=== PATIENT | male | born 1970 | race Caucasian/White ===

== ENCOUNTER 2023-05-05 14:52 | Emergency (ER) | payer BC, OTHER, SELFPAY ==
[2023-05-05 15:05] VITALS: BP 136/95; PULSE 128; RESP 20; TEMP 37.2; O2SAT 98; BMI 25.8
--- NOTE | 2023-05-05 15:13 | US_ITS ---
[address] [address] Patient Name: PIERRE MCKINNEY MRN: [id number] date: 1970 Sex: M Assigned Patient Location: ER Current Patient Location: ER Accession/Order Number: [id number] Exam Date: 05/05/2023 16:40 Report Date: 05/05/2023 18:02 At the request of: KELLY MONAHAN Procedure: US scrotum EXAM: US scrotum HISTORY: torsion COMPARISON: None. TECHNIQUE: Scrotal ultrasound was performed, utilizing grayscale, color, and spectral Doppler. FINDINGS: RIGHT: Testis size: 6 x 2.1 x 3 cm. Testis morphology: Homogeneous appearance. No mass. Testis flow: Normal testicular color and spectral Doppler. Flow is symmetric with the contralateral testis. Epididymis: Normal size and morphology, containing a 0.5 cm cyst. Epididymis flow: Normal epididymal flow. Symmetric flow compared to contralateral epididymis. Scrotal sac: Small hydrocele. Varicocele: Prominent vessels, likely representing varicocele LEFT: Testis size: 5.6 x 3.3 x 3.3 cm. Testis morphology: Heterogenous appearance. No mass. Testis flow: Increased testicular color and spectral Doppler. Asymmetrical increase in flow compared to the contralateral testis. Epididymis: Enlarged and heterogeneous. Epididymis flow: Increased epididymal flow. Symmetric flow compared to contralateral epididymis. Scrotal sac: Large complex hydrocele, containing multiple septations. Varicocele: Prominent vessels, may represent varicocele. Additional findings: None. US/US scrotum IMPRESSION: Heterogenous testicle and epididymis with increased vascular flow, representing acute epididymoorchitis. Small right hydrocele and large left complex hydrocele/pyocele. Posttreatment follow-up is recommended to evaluate resolution. No evidence of torsion at the time of examination. Electronically authenticated by: ANJELICA COOPER Date: 05/05/2023 18:02
--- NOTE | 2023-05-05 15:18 | CT_ITS ---
[address] [address] Patient Name: PIERRE MCKINNEY MRN: [id number] date: 1970 Sex: M Assigned Patient Location: ER Current Patient Location: ER Accession/Order Number: [id number] Exam Date: 05/05/2023 16:01 Report Date: 05/05/2023 16:20 At the request of: KELLY MONAHAN Procedure: CT abdomen pelvis wo con EXAM: CT abdomen pelvis wo con TECHNIQUE: Axial CT images were obtained of the abdomen and pelvis with intravenous contrast. Sagittal and coronal reformatted images were also obtained. Dose reduction techniques were achieved by using automated exposure control and/or adjustment of mA and/or kV according to patient size and/or use of iterative reconstruction technique. HISTORY: left testicular mass COMPARISON: None. FINDINGS: Lower chest: The lower lungs are clear. Liver: The liver is homogeneous with normal contours and normal size. Gallbladder: The gallbladder is unremarkable. There is no intra or extrahepatic biliary dilatation. Pancreas: The pancreas is homogeneous without evidence for mass lesion or inflammation. Spleen: The spleen is unremarkable without evidence for mass lesion. Adrenal glands: The adrenal glands are unremarkable Kidneys and bladder: The kidneys are unremarkable with no evidence for mass lesion, hydronephrosis or inflammation. The ureters demonstrate normal caliber. The urinary bladder is unremarkable. GI Tract: Stomach is unremarkable. Visualized small bowel is unremarkable without evidence for obstruction or active inflammation. The appendix is unremarkable.The visualized portion of the large bowel is unremarkable. Reproductive: Unremarkable Lymph nodes: No retroperitoneal or abdominal lymphadenopathy. Vascular: The aorta is not dilated. Peritoneum: No free intraperitoneal air or fluid. No acute inflammation. Abdominal wall: Mild degenerative changes of the lower lumbar spine. Large left-sided hydrocele is noted. There is inflammation of the left scrotal soft tissues and into the sclerotic cord. CT/CT abdomen pelvis wo con IMPRESSION: Large left-sided hydrocele. Inflammation surrounding left testicle within the left scrotum and extending up the spermatic cord. Evaluation is otherwise limited on this noncontrast study. Consider scrotal ultrasound for additional evaluation. No additional acute abdominal findings. Electronically authenticated by: WINNIE SNYDER Date: 05/05/2023 16:20
[2023-05-05 15:47] LABS: Basophils Absolute Auto 0.1 10^3/uL (0.0-0.1); Basophils Percent Auto 0.3 % (0.2-2.0); Eosinophils Percent Auto 0.1 % (0.9-7.0); Hematocrit 41.2 % (42.0-54.0); Hemoglobin 13.7 g/dL (14.0-18.0); Immature Granulocytes Abs Auto 0.08 10^3/uL (0.00-0.03); Immature Granulocytes Pct Auto 0.5 % (0.0-0.5); Lymphocytes Absolute Auto 1.2 10^3/uL (1.2-3.8); Lymphocytes Percent Auto 7.4 % (20.5-60.0); Mean Corpuscular HGB Conc 33.3 g/dL (29.9-35.2); Mean Corpuscular Hemoglobin 29.1 pg (25.9-34.0); Mean Corpuscular Volume 87.7 fL (80.0-94.0); Mean Platelet Volume 8.9 fL (9.5-13.5); Monocytes Absolute Auto 1.2 10^3/uL (0.3-0.8); Monocytes Percent Auto 7.3 % (1.7-12.0); Neutrophils Percent Auto 84.4 % (43.0-75.0); Platelet Count 287 10^3/uL (150-450); Red Cell Distribution Width 13.2 % (11.0-15.0); White Blood Count 16.5 10^3/uL (4.0-11.0)
[2023-05-05 16:06] LABS: Alanine Aminotransferase <6 U/L (16-63); Albumin Globulin Ratio 0.7; Albumin Level 3.2 g/dL (3.4-5.0); Alkaline Phosphatase 76 U/L (46-116); Anion Gap 12.3; Aspartate Amino Transferase 12 U/L (15-37); BUN Creatinine Ratio 10.4; Bilirubin Total 0.7 mg/dL (0.2-1.0); Calcium 8.4 mg/dL (8.5-10.1); Carbon Dioxide 27.4 mmol/L (21.0-32.0); Chloride 105 mmol/L (98-107); Estimated GFR (African America >60 (>=60); Estimated GFR (Non-African Ame 56 (>=60); Globulin 4.4 g/dL; Glucose 149 mg/dL (74-106); Potassium 3.7 mmol/L (3.5-5.1); Sodium 141 mmol/L (136-145); Total Protein 7.6 g/dL (6.4-8.2)
[2023-05-05] MEDS: KETOROLAC TROMETHAMINE 30 MG/ML VIAL 15 MG IVP (16:16)
[2023-05-05] MEDS: 0.9 % SODIUM CHLORIDE 1,000 ML 1000 ML IV (16:39)
[2023-05-05] MEDS: PIPERACILLIN SODIUM/TAZOBACTAM 3.375 GM in 0.9 % SODIUM CHLORIDE 50 ML IV (16:39)
[2023-05-05] MEDS: CEFTRIAXONE 1,000 MG in 0.9 % SODIUM CHLORIDE 50 ML 100 MG IV (18:30)
--- NOTE | 2023-05-05 18:30 | ED.MALEGU1 ---
HPI - Male Genitourinary General Chief complaint: Urogenital-Male Stated complaint: BLOOD IN URINE Time Seen by Provider: 05/05/23 15:13 Source: patient Mode of arrival: walk-in Limitations: no limitations History of Present Illness HPI Narrative: The patient is coming to the ER after he noted that he has been having this left testicular pain for the last few days he mentioned that it been going on at least for a week he is noted some chills at home, he denies any redness to his scrotum that is new he also denies any nausea vomiting or any other concerns He mentioned that he is HIV positive He also mentioned that he missed work and one of the reason that he is here is to get a work excuse Related Data Home Medications Medication Instructions Recorded Confirmed bupropion HCl 150 mg 24 hr tablet, 150 mg PO DAILY 05/05/23 05/05/23 extended release sildenafil (pulm.hypertension) 20 20 mg PO TID 05/05/23 05/05/23 mg tablet Previous Rx's Medication Instructions Recorded doxycycline hyclate 100 mg capsule 100 mg PO BID 10 days #20 caps 05/05/23 Allergies Allergy/AdvReac Type Severity Reaction Status Date / Time No Known Drug Allergies Allergy Verified 05/05/23 15:10 Review of Systems ROS Status of ROS 10 or more systems reviewed and unremarkable except as noted in history and below Exam Narrative Exam Narrative: Nurses notes and vital signs reviewed and patient is not hypoxic. General: Well-appearing and in no apparent distress. Skin: Warm, dry, no pallor noted. No rash. Head: Normocephalic, atraumatic. Neck: Supple, non-tender. Eye: Pupils are equal, round and EOMI. No scleral icterus. Ears, Nose, Mouth, and Throat: TM are clear, no nasal mucosal hypertrophy. Oral mucosa is moist, no posterior oropharynx erythema, uvula is mid-line Cardiovascular: Regular Rate and Rhythm without murmur, gallop or rub. Respiratory: No accessory muscle use or respiratory distress. Lungs are clear to auscultation, no wheezing, rales or rhonchi Chest Wall: no tenderness Back: No midline thoracic or lumbar vertebral tenderness. No CVA tenderness Musculoskeletal: normal ROM, no calf or popliteal tenderness, no lower extremity edema/swelling GI: Abdomen is soft, non-distended. Normal bowel sounds. No masses appreciated. No tenderness to palpation. No rebound, guarding, or rigidity noted. Neurological: A&O x4. No cranial nerve dysfunction observed. No truncal ataxia. Moves all extremities. Sensation intact. Psychiatric: Cooperative and interactive. Normal mood and affect. Upon examination of the scrotum the patient have the left testicle is almost 3 times the size of the right testicles and the patient, the patient have no localized hotness the tenderness is all over the left testicles and nonspecific to 1 area Constitutional Vital Signs, click to edit/add: Last Vital Signs Temp 99 F 05/05/23 15:05 Pulse 128 H 05/05/23 15:05 Resp 20 05/05/23 15:05 BP 136/95 H 05/05/23 15:05 Pulse Ox 98 05/05/23 15:05 Course Vital Signs Vital signs: Vital Signs Temperature 99 F 05/05/23 15:05 Pulse Rate 128 H 05/05/23 15:05 Respiratory Rate 20 05/05/23 15:05 Blood Pressure 136/95 H 05/05/23 15:05 Pulse Oximetry 98 05/05/23 15:05 Temperature 99 F 05/05/23 15:05 Pulse Rate 128 H 05/05/23 15:05 Respiratory Rate 20 05/05/23 15:05 Blood Pressure 136/95 H 05/05/23 15:05 Pulse Oximetry 98 05/05/23 15:05 MDM - Male Genitourinary MDM Narrative Medical decision making narrative: The patient had a symptoms of left testicular pain and swelling for the last 1 week he also is HIV positive and his CBC shows leukocytosis lactic acid was 2 the chemistry showing some mild acute kidney injury I obtained a blood culture and the patient as well as I started him on Zosyn initially but after getting a CAT scan that showed hydrocele of the left side and no signs of acute infection and the fact that the ultrasound shows epididymal orchitis I explained to the patient that with the fact that he have leukocytosis that I prefer that he get admitted for IV antibiotic but he adamantly refused although I did explain to him that when the white blood cells elevated there is concern for the infection that got to the blood and that could be a harmful effect of the patient's life but the patient adamant that he wants to leave The patient was started on doxycycline after 1 dose of ceftriaxone also was tested for GC chlamydia The patient initially was tachycardic due to pain but after he calmed down his heart rate was within normal I again explained to the patient that he need to follow-up with urology as outpatient and come back in case of any new symptoms Lab Data Labs: Lab Results 05/05/23 05/05/23 Range/Units 15:35 16:00 WBC 16.5 H (4.0-11.0) 10^3/uL RBC 4.70 (4.70-6.10) 10^6/uL Hgb 13.7 L (14.0-18.0) g/dL Hct 41.2 L (42.0-54.0) % MCV 87.7 (80.0-94.0) fL MCH 29.1 (25.9-34.0) pg MCHC 33.3 (29.9-35.2) g/dL RDW 13.2 (11.0-15.0) % Plt Count 287 (150-450) 10^3/uL MPV 8.9 L (9.5-13.5) fL Neut % (Auto) 84.4 H (43.0-75.0) % Lymph % (Auto) 7.4 L (20.5-60.0) % [place] % (Auto) 7.3 (1.7-12.0) % Eos % (Auto) 0.1 L (0.9-7.0) % Baso % (Auto) 0.3 (0.2-2.0) % Neut # (Auto) 14.0 H (1.4-6.5) 10^3/uL Lymph # (Auto) 1.2 (1.2-3.8) 10^3/uL [place] # (Auto) 1.2 H (0.3-0.8) 10^3/uL Eos # (Auto) 0.0 (0.0-0.7) 10^3/uL Baso # (Auto) 0.1 (0.0-0.1) 10^3/uL Abs Immat Gran (auto) 0.08 H (0.00-0.03) 10^3/uL Imm/Tot Granulo (auto) 0.5 (0.0-0.5) % Sodium 141 (136-145) mmol/L Potassium 3.7 (3.5-5.1) mmol/L Chloride 105 (98-107) mmol/L Carbon Dioxide 27.4 (21.0-32.0) mmol/L Anion Gap 12.3 BUN 14.0 (7.0-18.0) mg/dL Creatinine 1.34 H (0.70-1.30) mg/dL Est GFR ( Amer) >60 (>=60) Est GFR (Non-Af Amer) 56 L (>=60) BUN/Creatinine Ratio 10.4 Glucose 149 H (74-106) mg/dL Lactate 2.0 (0.4-2.0) mmol/L Calcium 8.4 L (8.5-10.1) mg/dL Total Bilirubin 0.7 (0.2-1.0) mg/dL AST 12 L (15-37) U/L ALT <6 L (16-63) U/L Alkaline Phosphatase 76 (46-116) U/L Total Protein 7.6 (6.4-8.2) g/dL Albumin 3.2 L (3.4-5.0) g/dL Globulin 4.4 g/dL Albumin/Globulin Ratio 0.7 Discharge Plan Discharge Chief Complaint: Urogenital-Male Clinical Impression: Acute epididymo-orchitis Patient Disposition: Home, Self-Care Time of Disposition Decision: 18:21 Condition: Good Prescriptions / Home Meds: New doxycycline hyclate 100 mg capsule 100 mg PO BID 10 Days Qty: 20 0RF No Action bupropion HCl 150 mg tablet extended release 24 hr 150 mg PO DAILY sildenafil (pulm.hypertension) 20 mg tablet 20 mg PO TID Instructions: Epididymo-Orchitis (ED) Stand Alone Forms: Portal Instructions Referrals: NILESH WATSON [Primary Care Provider] - 1 week Pratik Marquez MD [Physician] - As soon as possible
[2023-05-05 18:38] VITALS: BP 141/98; PULSE 106; O2SAT 98
[2023-05-05 18:42] LABS: Bilirubin Urine SMALL (NEGATIVE); Blood Urine NEGATIVE (NEGATIVE); Clarity Urine CLEAR (CLEAR); Color Urine YELLOW (YELLOW); Glucose Urine UA NEGATIVE (NEGATIVE); Ketones Urine 15 mg/dL (NEGATIVE); Leukocyte Esterase Urine SMALL (NEGATIVE); Nitrite Urine NEGATIVE (NEGATIVE); Protein Urine 30 mg/dL (NEG/TRACE); Specific Gravity Urine 1.025 (1.005-1.025); Urine Microscopic Indicated YES; Urobilinogen Urine >=8.0 EU/dL (0.2-1.0)
[2023-05-05 18:50] LABS: Bacteria Urine TRACE #/HPF (NONE SEEN); Mucus Urine TRACE (NONE SEEN); RBC Urine 0-2 #/HPF (0-2); Squamous Epithelial Cell Urine RARE #/LPF (NONE/RARE)
[2023-05-05 18:51] LABS: Cast Seen? NONE SEEN #/LPF (NONE SEEN); Crystals Seen? None Seen #/HPF (None Seen); Urine Culture Indicated YES
[2023-05-08 02:45] LABS: A. calcoaceticus-baumannii Cpx NOT DETECTED (NOT DETECTE); Bacteroides fragilis NOT DETECTED (NOT DETECTE); Candida albicans NOT DETECTED (NOT DETECTE); Candida auris NOT DETECTED (NOT DETECTE); Candida glabrata NOT DETECTED (NOT DETECTE); Candida krusei NOT DETECTED (NOT DETECTE); Candida parapsilosis NOT DETECTED (NOT DETECTE); Candida tropicalis NOT DETECTED (NOT DETECTE); Cryptococcus neoformans/gattii NOT DETECTED (NOT DETECTE); Enterobacter cloacae complex NOT DETECTED (NOT DETECTE); Enterobacterales NOT DETECTED (NOT DETECTE); Enterococcus faecalis NOT DETECTED (NOT DETECTE); Enterococcus faecium NOT DETECTED (NOT DETECTE); Haemophilus influenzae NOT DETECTED (NOT DETECTE); Klebsiella aerogenes NOT DETECTED (NOT DETECTE); Klebsiella pneumoniae group NOT DETECTED (NOT DETECTE); Listeria monocytogenes NOT DETECTED (NOT DETECTE); Neisseria meningitidis NOT DETECTED (NOT DETECTE); Proteus spp. NOT DETECTED (NOT DETECTE); Pseudomonas aeruginosa NOT DETECTED (NOT DETECTE); Salmonella spp. NOT DETECTED (NOT DETECTE); Serratia marcescens NOT DETECTED (NOT DETECTE); Staphylococcus epidermidis NOT DETECTED (NOT DETECTE); Staphylococcus lugdunensis NOT DETECTED (NOT DETECTE); Staphylococcus spp. NOT DETECTED (NOT DETECTE); Stenotrophomonas maltophilia NOT DETECTED (NOT DETECTE); Streptococcus agalactiae NOT DETECTED (NOT DETECTE); Streptococcus pneumoniae NOT DETECTED (NOT DETECTE); Streptococcus pyogenes NOT DETECTED (NOT DETECTE); Streptococcus spp. NOT DETECTED (NOT DETECTE)
[2023-05-08 22:06] LABS: Neisseria gonorrhoeae, NAA Negative (Negative)
--- NOTE | 2023-05-09 15:34 | PC.NURSE ---
called patient at 1356 05/09/23 and updated patient on blood culture results. patient was instructed to return to the ER for treatment. patient called back at 15:30 05/09/2023 stated has a ride back to the ER. patent states wants released back to work. DR. hernandez states he is not releasing patient back to work. patient made of course of treatment and plan of care for patient. patient states he doesn't not agree with plan of care at this time. patient instructed he could come back for treatment if he decides he wants to return.
== END 2023-05-05 19:04 | disposition home or self-care (01) ==
PROVIDERS: Emergency Provider Emergency Medicine; PCP Internal Medicine Infectious Disease
DX: N45.3 Epididymo-orchitis (principal); Z21 Asymptomatic human immunodeficiency virus [HIV] infection status; Z79.899 Other long term (current) drug therapy
CPT/HCPCS: 36415; 74176; 76870; 80053; 81001; 83605; 85025; 87040; 87086; 87150; 87186; 87491; 87591; 96365; 96375; 99285

== ENCOUNTER 2023-05-10 14:29 | Emergency (ER) | payer BC, OTHER, SELFPAY ==
[2023-05-10 14:35] VITALS: BP 127/100; PULSE 88; RESP 16; TEMP 36.6; O2SAT 100; BMI 25.8
[2023-05-10 15:25] LABS: Bilirubin Urine NEGATIVE (NEGATIVE); Blood Urine NEGATIVE (NEGATIVE); Clarity Urine CLEAR (CLEAR); Color Urine LT. YELLOW (YELLOW); Glucose Urine UA NEGATIVE (NEGATIVE); Ketones Urine NEGATIVE (NEGATIVE); Leukocyte Esterase Urine TRACE (NEGATIVE); Nitrite Urine NEGATIVE (NEGATIVE); Protein Urine NEGATIVE (NEG/TRACE); Urobilinogen Urine 0.2 EU/dL (0.2-1.0)
[2023-05-10 15:29] LABS: Bacteria Urine NONE SEEN #/HPF (NONE SEEN); Cast Seen? NONE SEEN #/LPF (NONE SEEN); Crystals Seen? None Seen #/HPF (None Seen); Mucus Urine NONE SEEN (NONE SEEN); RBC Urine 0-2 #/HPF (0-2); Squamous Epithelial Cell Urine RARE #/LPF (NONE/RARE); Urine Culture Indicated NO; WBC Urine 0-2 #/HPF (NONE SEEN)
--- NOTE | 2023-05-10 16:04 | ED_ITS ---
HPI - Medical Clearance General Chief complaint: Medical Clearance Stated complaint: GROIN PAIN Time Seen by Provider: 05/10/23 14:42 Source: patient Mode of arrival: walk-in History of Present Illness HPI Narrative: 52-year-old male presented as instructed to return for reevaluation. He had a blood culture that was positive for Sphingomonas paucimobilis and at that time was diagnosed with epididymal orchitis and prescribed doxycycline.. He was instructed to return for reevaluation. He states the swelling has gone down greatly and he is taking his antibiotics. No fever and his pain is decreasing. Related Information Home Medications Medication Instructions Recorded Confirmed bupropion HCl 150 mg 24 hr tablet, 150 mg PO DAILY 05/05/23 05/05/23 extended release sildenafil (pulm.hypertension) 20 20 mg PO TID 05/05/23 05/05/23 mg tablet Previous Rx's Medication Instructions Recorded doxycycline hyclate 100 mg capsule 100 mg PO BID 10 days #20 caps 05/05/23 Allergies Allergy/AdvReac Type Severity Reaction Status Date / Time No Known Drug Allergies Allergy Verified 05/05/23 15:10 Review of Systems ROS Narrative A ten point review of systems is negative except as noted above. Exam Narrative Exam Narrative: Nurses note and vital signs reviewed and patient is not hypoxic. General: The patient appears well and in no apparent distress. Patient is resting comfortably on cart. Skin: Warm, dry, no pallor noted. There is no rash noted. Head: Normocephalic, atraumatic Eye: Normal conjunctiva, no drainage Ears, Nose, Mouth, and Throat: oral mucosa is moist. Nares patent. Cardiovascular: Regular Rate and Rhythm Respiratory: Patient is in no distress, no accessory muscle use, lungs are clear to auscultation, no wheezing, rales or rhonchi Back: non-tender : Left testicle is mildly enlarged compared to the contralateral but there seems to be no tenderness. He has no inguinal adenopathy GI: soft and nontender Musculoskeletal: The patient has no evidence of calf tenderness, no pitting edema, symmetrical pulses noted bilaterally Neurological: A&O, normal speech Psychiatric: Cooperative Constitutional Vital Signs, click to edit/add: Last Vital Signs Temp 97.9 F 05/10/23 14:35 Pulse 88 05/10/23 14:35 Resp 16 05/10/23 14:35 BP 127/100 H 05/10/23 14:35 Pulse Ox 100 05/10/23 14:35 Course Vital Signs Vital signs: Vital Signs Temperature 97.9 F 05/10/23 14:35 Pulse Rate 88 05/10/23 14:35 Respiratory Rate 16 05/10/23 14:35 Blood Pressure 127/100 H 05/10/23 14:35 Pulse Oximetry 100 05/10/23 14:35 Temperature 97.9 F 05/10/23 14:35 Pulse Rate 88 05/10/23 14:35 Respiratory Rate 16 05/10/23 14:35 Blood Pressure 127/100 H 05/10/23 14:35 Pulse Oximetry 100 05/10/23 14:35 MDM - Medical Clearance MDM Narrative Medical decision making narrative: urinalysis is negative and his white blood cell count is back down to normal. He states that his swelling has greatly improved. We will continue the antibiotic that he is on now, doxycycline. It appears to be effective in his treatment. He is referred to urology. Treatment diagnosis and follow-up were discussed with the patient. Differential Diagnosis Differential diagnosis: Likely other (sepsis, epididymitis, orchitis, urinary tract infection) Lab Data Attestation: I reviewed the patient's lab results. Labs: Lab Results 05/10/23 05/10/23 Range/Units 13:52 15:15 WBC 5.0 (4.0-11.0) 10^3/uL RBC 4.39 L (4.70-6.10) 10^6/uL Hgb 12.8 L (14.0-18.0) g/dL Hct 39.7 L (42.0-54.0) % MCV 90.4 (80.0-94.0) fL MCH 29.2 (25.9-34.0) pg MCHC 32.2 (29.9-35.2) g/dL RDW 13.2 (11.0-15.0) % Plt Count 325 (150-450) 10^3/uL MPV 9.1 L (9.5-13.5) fL Neut % (Auto) 59.0 (43.0-75.0) % Lymph % (Auto) 32.6 (20.5-60.0) % [place] % (Auto) 5.2 (1.7-12.0) % Eos % (Auto) 2.0 (0.9-7.0) % Baso % (Auto) 1.0 (0.2-2.0) % Neut # (Auto) 3.0 (1.4-6.5) 10^3/uL Lymph # (Auto) 1.6 (1.2-3.8) 10^3/uL [place] # (Auto) 0.3 (0.3-0.8) 10^3/uL Eos # (Auto) 0.1 (0.0-0.7) 10^3/uL Baso # (Auto) 0.1 (0.0-0.1) 10^3/uL Abs Immat Gran (auto) 0.01 (0.00-0.03) 10^3/uL Imm/Tot Granulo (auto) 0.2 (0.0-0.5) % Urine Color Lt. yellow (YELLOW) Urine Clarity Clear (CLEAR) Urine pH 6.0 (5.0-9.0) Ur Specific [place] 1.010 (1.005-1.025) Urine Protein Negative (NEG/TRACE) mg/dL Urine Glucose (UA) Negative (NEGATIVE) mg/dL Urine Ketones Negative (NEGATIVE) mg/dL Urine Occult Blood Negative (NEGATIVE) Urine Nitrite Negative (NEGATIVE) Urine Bilirubin Negative (NEGATIVE) Urine Urobilinogen 0.2 (0.2-1.0) EU/dL Ur Leukocyte Esterase Trace A (NEGATIVE) Urine RBC 0-2 (0-2) #/HPF Urine WBC 0-2 A (NONE SEEN) #/HPF Ur Squamous Epith Cells Rare (NONE/RARE) #/LPF Urine Crystals None seen (None Seen) #/HPF Urine Bacteria None seen (NONE SEEN) #/HPF Urine Casts None seen (NONE SEEN) #/LPF Urine Mucus None seen (NONE SEEN) Ur Culture Indicated? No Discharge Plan Discharge Chief Complaint: Medical Clearance Clinical Impression: Acute epididymo-orchitis Patient Disposition: Home, Self-Care Time of Disposition Decision: 16:17 Condition: Good Mode of Transportation: Private Vehicle Prescriptions / Home Meds: No Action bupropion HCl 150 mg tablet extended release 24 hr 150 mg PO DAILY sildenafil (pulm.hypertension) 20 mg tablet 20 mg PO TID doxycycline hyclate 100 mg capsule 100 mg PO BID 10 Days Qty: 20 0RF Instructions: Epididymo-Orchitis (ED) Additional Instructions: follow-up with Dr. Marquez Stand Alone Forms: Portal Instructions Referrals: NILESH WATSON [Primary Care Provider] - 1 week
[2023-05-10 16:11] LABS: Basophils Absolute Auto 0.1 10^3/uL (0.0-0.1); Eosinophils Absolute Auto 0.1 10^3/uL (0.0-0.7); Hematocrit 39.7 % (42.0-54.0); Hemoglobin 12.8 g/dL (14.0-18.0); Immature Granulocytes Abs Auto 0.01 10^3/uL (0.00-0.03); Immature Granulocytes Pct Auto 0.2 % (0.0-0.5); Lymphocytes Absolute Auto 1.6 10^3/uL (1.2-3.8); Lymphocytes Percent Auto 32.6 % (20.5-60.0); Mean Corpuscular HGB Conc 32.2 g/dL (29.9-35.2); Mean Corpuscular Hemoglobin 29.2 pg (25.9-34.0); Mean Corpuscular Volume 90.4 fL (80.0-94.0); Mean Platelet Volume 9.1 fL (9.5-13.5); Monocytes Absolute Auto 0.3 10^3/uL (0.3-0.8); Monocytes Percent Auto 5.2 % (1.7-12.0); Platelet Count 325 10^3/uL (150-450); Red Blood Count 4.39 10^6/uL (4.70-6.10); Red Cell Distribution Width 13.2 % (11.0-15.0)
== END 2023-05-10 16:43 | disposition home or self-care (01) ==
PROVIDERS: Emergency Provider Emergency Medicine; PCP Internal Medicine Infectious Disease
DX: N45.3 Epididymo-orchitis (principal); Z79.899 Other long term (current) drug therapy
CPT/HCPCS: 36415; 81001; 85025; 87040; 99285